=== PATIENT | female | born 2000 | race Two or more races ===

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

== ENCOUNTER 2021-01-07 23:14 | Emergency (ER) | payer MEDICAID ==
[~2021-01-07] VITALS: Ht 149.9 cm; Wt 65.8 kg
[2021-01-08] VITALS: BP 127/70
== END 2021-01-08 00:54 | disposition home or self-care (01) ==
LOC: ER 23:14
DX: F41.9 Anxiety disorder, unspecified (principal)